=== PATIENT | male | born 1985 | race Caucasian/White ===

== ENCOUNTER 2016-12-03 20:11 | Inpatient (IN) | payer BC, OTHER ==
[~2016-12-03] VITALS: Ht 182.9 cm; Wt 95.3 kg
[2016-12-03 21:45] VITALS: BP 150/91
--- NOTE | 2016-12-03 21:45 | NUR ---
Admission Note: New admission is a 31yo male on the [facility] floor at 21:30 on 12/03/16 accompanied by male SOFTWARE TESTER. Skin check completed by staff nurse midwife in presence of SOFTWARE TESTER reveals skin to be clean, dry, intact, and WNL. VS upon admission: 150/91, 78, 98.7, 14, 93% Spo2 on RA. Heart rate irregular and pt reports significant cocaine use hx; will obtain order for EKG. Height is 6'0" and weight by standing scale is 210 lbs. Pt denies pain at this time. COWS=3, CIWA=4. Pt noted with 1mm pupils, delayed verbal responses, slurred speech. Pt reports taking 90mg Roxicodone immediately prior to admission and using 2gm cocaine on the day of admission. Pt reports NKDA/NKFA. Pt reports that he does have a PCP but is unable to recall the name or location of this MD. Pt reports the following substance use: Patient reports being sober for 3 years and then relapsing approximately 4 weeks ago. 1) Roxicodone: 450-600mg/day. Last use 90mg on 12/03/16 at 21:00. Using for 14 years total and 4 weeks at current rate. 2) Xanax: 2mg/day. Last use 2mg on 12/03/16 in AM. Using for 14 years total and 4 weeks at current rate. 3) ETOH: 4-8 drinks of beer of wine/day. Last use "a couple beers" on 12/03/16. Drinking for 17 years total and 2 weeks at current rate. 4) Cocaine: 2-3gm/day. Last use 2gm on 12/03/16. Using for 14 years total and 4 weeks at current rate. 5) GHB: occasional use of unknown amount. Treatment Hx: [facility] in [place], [place]: December 2012 - May 2013 [facility] in [place], [place]: May 2013 - December 2013 Pt reports medical hx of anxiety and multiple sports related injuries/fractures (right shoulder, left elbow, left wrist). Pt reports skin CA lesion removed from right knee at 24yo. Pt denies sz hx. Pt reports using needles for steroids but denies sharing needles.
[2016-12-03 21:53] LABS: *AMPHETAMINE, URINE NEGATIVE (NEGATIVE); *BARBITURATE, URINE NEGATIVE (NEGATIVE); *CANNABINOID, URINE NEGATIVE (NEGATIVE); *COCCAINE, URINE POSITIVE (NEGATIVE); *OPIATE, URINE NEGATIVE (NEGATIVE); *PHENCYCLIDINE SCREEN,URINE NEGATIVE (NEGATIVE)
[2016-12-03] MEDS ORDERED: ACETAMINOPHEN 325 MG TABLET PO PRN (23:00)
[2016-12-03] MEDS ORDERED: PROMETHAZINE HCL 25 MG/1 ML VIAL IM PRN (23:00)
[2016-12-03] MEDS ORDERED: LOPERAMIDE HCL 2 MG CAPSULE PO PRN ×2 (23:00)
[2016-12-03] MEDS ORDERED: DIAZEPAM 10 MG TABLET PO PRN ×2 (23:00)
[2016-12-03] MEDS ORDERED: MIRALAX 17 GM POWD.PACK PO PRN (23:00)
[2016-12-03] MEDS ORDERED: DIAZEPAM 5 MG TABLET PO PRN (23:00)
[2016-12-03] MEDS ORDERED: BUPRENORPHINE HCL 2 MG TAB.SUBL SL PRN (23:00)
[2016-12-03] MEDS ORDERED: DICYCLOMINE HCL 20 MG TABLET PO PRN (23:00)
[2016-12-03] MEDS ORDERED: IBUPROFEN 400 MG TABLET PO PRN (23:00)
[2016-12-03] MEDS ORDERED: MAGNESIUM HYDROXIDE 30 ML LIQUID UDC PO PRN (23:00)
[2016-12-03] MEDS ORDERED: diphenhydrAMINE 50 MG CAPSULE PO PRN (23:00)
[2016-12-03] MEDS ORDERED: LORAZEPAM 2 MG/1 ML VIAL IM PRN (23:00)
[2016-12-03 23:59] LABS: BASOPHILS # (AUTO) 0.1 K/uL (0.0-0.2); BASOPHILS % (AUTO) 0.7 % (0.0-2.0); EOSINOPHILS # (AUTO) 0.3 K/uL (0.0-0.7); HEMATOCRIT 49.9 % (40.0-50.0); HEMOGLOBIN 17.4 g/dL (14.0-18.0); LYMPHOCYTES # (AUTO) 1.8 K/uL (0.8-4.8); LYMPHOCYTES % (AUTO) 15.8 % (20.5-51.5); MEAN CORPUSCULAR HEMOGLOBIN 31.4 uug (27.0-31.0); MEAN CORPUSCULAR HGB CONC 35 g/dL (32.0-37.0); MONOCYTES # (AUTO) 0.9 K/uL (0.1-1.30); MONOCYTES % (AUTO) 8.5 % (0.0-11.0); PLATELET COUNT (AUTO) 197 K/uL (150-450); RED BLOOD CELL COUNT(AUTO) 5.54 MIL/uL (4.70-6.10); RED CELL DISTRIBUTION WIDTH 11.7 % (11.5-14.5); WHITE BLOOD COUNT (AUTO) 11.1 K/uL (4.0-11.2)
[2016-12-04] VITALS: BP 147/70
[2016-12-04 00:06] LABS: ALANINE AMINOTRANSFERASE 32 U/L (16-63); ALBUMIN 4.3 g/dL (3.4-5.0); ALKALINE PHOSPHATASE 83 U/L (50-136); AMYLASE 50 U/L (25-115); ASPARTATE AMINOTRANSFERASE 21 U/L (15-37); BILIRUBIN,TOTAL 0.7 mg/dL (0.2-1.0); CARBON DIOXIDE 29 mmol/L (21-32); CHLORIDE 101 mmol/L (98-107); GFR 59 mL/min (>60); GLUCOSE 102 mg/dL (74-106); LIPASE 96 U/L (73-393); MAGNESIUM 2.1 mg/dL (1.8-2.4); SODIUM SERUM 138 mmol/L (136-145); TOTAL PROTEIN, SERUM 7.8 g/dL (6.4-8.2); UREA NITROGEN, BLOOD 19 mg/dL (7-18)
[2016-12-04 00:07] LABS: CREATININE 1.4 mg/dL (0.6-1.3)
[2016-12-04 00:08] LABS: ETHANOL < 3 MG/DL (0-0)
[2016-12-04 00:18] LABS: THYROID STIMULATING HORMONE 4.714 mIU/mL (0.358-3.740)
[2016-12-04 00:26] LABS: HIV-1 p24 ANTIGEN NON REACTIVE (NONREACTIVE); HIV-1/2 ANTIBODY NON REACTIVE (NONREACTIVE)
[2016-12-04] MEDS ORDERED: TADA5TAB2 PO (03:07)
[2016-12-04 04:00] VITALS: BP 148/88
[2016-12-04] MEDS ORDERED: ONDANSETRON 4 MG/2 ML VIAL IV PRN (07:15)
--- NOTE | 2016-12-04 07:15 | NUR ---
End of Shift Note: Pt is a a 31yo male admitted to [facility] last night for medically-supervised withdrawal from opiates, benzodiazepines, and ETOH. Pt reports using Roxicodone 450-600mg/day and Xanax 2mg/day for 4 weeks, and drinking 4-8 beers/wine daily for 2 weeks. Pt also reports daily use of 2-3gm cocaine and intermittent use of GHB. Admission UDS resulted negative for opiates. Pt denies seizure hx. 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 Pt is a full code, on a regular diet, and reports NKDA/NKFA. No PRN medications were given this shift, as pt was intoxicated on admission. Pt reported significant cocaine use hx and noted upon assessment to have irregular HR, EKG ordered and resulted WNL. Last COWS=6, CIWA=7 at 04:00. Endorsed irregular HR, confirmation of PCP, use hx, and negative UDS for opiates to day shift nurse. Pt is currently in bed and slept 5 hours this shift. Bed is in low position and locked, side rails up x2, call light within reach. All needs attended and met. Will continue to monitor.
--- NOTE | 2016-12-04 07:35 | NUR ---
START OF SHIFT NOTE: Received report from night time nanny nurse. Pt is a 31 year old male admitted 12-03-16 for Roxicodone, Xanax and Cocaine dependence. Pt is not on a taper at this time. Pt is alert and oriented X4. Color good, skin warm and dry. Respirations even and unlabored. Pt resting in bed at this time. Safety precautions observed. Call light within reach. Will continue to monitor.
[2016-12-04 08:00] VITALS: BP 120/86
[2016-12-04] MEDS: MULTIVITAMINS,THERAPEUTIC TABLET PO SCH (08:50)
[2016-12-04] MEDS ORDERED: TUBERCULIN,PURIF.PROT.DERIV. 5 TU/0.1 ML TEST ID ONE (09:00)
--- NOTE | 2016-12-04 09:00 | NUR ---
VSS CIWA 11 C/O headache, anxiety and tremors. Valium 10mg po prn and Motrin 400mg po prn given.
--- NOTE | 2016-12-04 09:10 | NUR ---
TB test administered LFA
--- NOTE | 2016-12-04 10:00 | NUR ---
Pt states still with anxiety and sweating after Valium 10mg po prn. CIWA 8
--- NOTE | 2016-12-04 10:15 | NUR ---
COWS 12 Pt started on 5 day Subutex taper
[2016-12-04] MEDS: BUPRENORPHINE HCL 2 MG TAB.SUBL SL SCH ×4 (10:20→21:09)
[2016-12-04] MEDS ORDERED: ONDANSETRON 4 MG/2 ML VIAL IM PRN (11:15)
[2016-12-04] MEDS: LORAZEPAM 1 MG TABLET PO SCH ×3 (12:23→21:09)
--- NOTE | 2016-12-04 12:32 | NUR ---
VSS COWS 10 CIWA 8 Pt resting in bed. Still with tremors, sweating, body aches and anxiety.
[2016-12-04 12:56] VITALS: BP 116/70
[2016-12-04] MEDS: GABAPENTIN 300 MG CAPSULE PO SCH ×2 (16:25→21:09)
[2016-12-04] MEDS: METHOCARBAMOL 750 MG TABLET PO PRN (16:34)
[2016-12-04] MEDS: CLONIDINE HCL 0.1 MG TABLET PO PRN (16:34)
--- NOTE | 2016-12-04 16:36 | NUR ---
VSS COWS 10 CIWA 8. C/O body aches, sweating , tremors and anxiety. Clonidine 0.1mg po prn and Robaxin 750mg po prn given.
[2016-12-04] MEDS: ONDANSETRON ODT 4 MG TAB.RAPDIS SL PRN (17:32)
--- NOTE | 2016-12-04 17:37 | NUR ---
Pt states body aches improved after Clonidine and Robaxin prn. C/O nausea. Zofran 4mg sl given
[2016-12-04 17:40] VITALS: BP 120/80
--- NOTE | 2016-12-04 18:54 | NUR ---
END OF SHIFT NOTE: Report given to night time babysitter nurse. Pt is a 31 year old male admitted 12-03-16 for Roxicodone, Xanax and Cocaine dependence. Pt placed on a 5 day Ativan and 5 day Subutex tapers @ 1015. Tolerating well. Pt is alert and oriented X4. Color good, skin warm and dry. Respirations even and unlabored. Valium 10mg po prn and Motrin 400mg po prn given @ 0900. Also received Clonidine 0.1mg po prn and Robaxin 750mg po prn given @ 1640. Also received Zofran 4mg sl prn @ 1740. Pt resting in bed at this time. Safety precautions observed. Call light within reach.
--- NOTE | 2016-12-04 18:54 | NUR ---
Pt feels improved after Zofran prn.
--- NOTE | 2016-12-04 19:50 | NUR ---
Start of Shift Note: Report received from day shift nurse. Pt is a 31yo male admitted on 12/03/16 for medically-supervised withdrawal from opiates, benzos, ETOH, and cocaine. Pt reports using 450-600mg Roxicodone and 2mg Xanax daily for 4 weeks and drinking 4-8 beers/wine daily for 2 weeks. Pt also reports daily use of 2-3gm cocaine. Pt is on day 1 of a 5-day Ativan and Subutex tapers. Pt received with last day shift COWS=10, CIWA=9. Pt reports PMHx of anxiety, HSV-2, skin CA, and multiple sports-related injuries. Full code, regular diet, NKDA/NKFA. Pt is currently in room resting, and did not attend group sessions today. Will reinforce education on importance of attending group. All needs attended and met at this time. All safety precautions are in place. Will continue to monitor.
[2016-12-04 20:00] VITALS: BP 119/65
--- NOTE | 2016-12-04 21:40 | NUR ---
MD Communication: Pt requests Trazodone for sleep, states that it has been more effective for him in the past than Benadryl. Dr Simpson contacted and new order received for Trazodone 50mg PO HSPRN Sleep. Order noted and carried out.
--- NOTE | 2016-12-04 21:41 | NUR ---
PRN Trazodone: Pt complains of inability to sleep. Administered PRN Trazodone as ordered. Will continue to monitor.
[2016-12-04] MEDS ORDERED: TRAZODONE 50 MG TABLET PO ONE (21:45)
[2016-12-04] MEDS ORDERED: TRAZODONE 50 MG TABLET ONE (21:46)
--- NOTE | 2016-12-04 22:45 | NUR ---
Reassessment: Pt is in bed with eyes closed. Respirations are even and unlabored. No s/s of acute distress noted. PRN Trazodone effective. Will continue to monitor.
[2016-12-05] VITALS: BP 133/86
[2016-12-05] MEDS: ONDANSETRON ODT 4 MG TAB.RAPDIS SL PRN (00:22)
--- NOTE | 2016-12-05 00:22 | NUR ---
Zofran PRN: Pt noted with nausea and vomiting. Emesis episode x1. Pt stated he's feeling nauseated. Zofran ODT PRN given as ordered. Will continue to monitor.
--- NOTE | 2016-12-05 01:25 | NUR ---
Reassessment: Pt denies nausea at this time. PRN Zofran effective. Will continue to monitor.
[2016-12-05 04:00] VITALS: BP 106/74
[2016-12-05] MEDS: HYDROXYZINE PAMOATE 25 MG CAPSULE PO PRN (04:19)
[2016-12-05] MEDS: CLONIDINE HCL 0.1 MG TABLET PO PRN (04:24)
--- NOTE | 2016-12-05 04:25 | NUR ---
PRN Clonidine and PRN Vistaril: Pt reports waking up with severe anxiety and sweating. Administered PRN Clonidine for diaphoresis/anxiety and PRN Vistaril for anxiety as ordered. Will continue to monitor.
--- NOTE | 2016-12-05 04:33 | NUR ---
Hallucinations: Pt reports seeing shadows move. Pt states, "I saw my dog in my room and thought I was using my phone." Will continue to monitor for safety.
--- NOTE | 2016-12-05 05:25 | NUR ---
Reassessment: Pt is in bed with eyes closed. Respirations are even and unlabored. No s/s of acute distress noted. PRN Vistaril and PRN Clonidine effective AEB pt's ability to rest. Will continue to monitor.
[2016-12-05 06:06] LABS: HCV AB <0.1 s/co ratio (0.0-0.9); HEPATITIS B CORE AB, IgM Negative (Negative); HEPATITIS B SURFACE AG Negative (Negative)
--- NOTE | 2016-12-05 06:59 | NUR ---
End of Shift Note: Pt is a a 31yo male admitted to [facility] on 12/03/16 for medically-supervised withdrawal from opiates, benzodiazepines, and ETOH. Pt reports using 450-600mg Roxicodone and 2mg Xanax daily for 4 weeks, and drinking 4-8 beers/wine daily for 2 weeks. Pt also reports daily use of 2-3gm cocaine and intermittent use of GHB. Pt is to start the second day of 5-day Ativan and Subutex tapers. Scheduled medication taper effectively managed s/s of withdrawal, and COWS/CIWA decreased from 06/04 at 20:00 to 9 at 00:00. PRN medications were then necessary to manage anxiety (PRN Vistaril), diaphoresis (PRN Clonidine), and nausea (PRN Zofran). Last COWS/CIWA was 6 at 04:00. Pt reports PMHx of anxiety, HSV-2, skin CA, and multiple sports injuries. Pt is a full code, on a regular diet, and reports NKDA/NKFA. V/S stable throughout shift. Total fluid intake this shift: 1355 ml; output: urine x 4 and BM x 0. Pt currently in bed and slept 11 hours this shift. Pt endorsed to day shift nurse.
--- NOTE | 2016-12-05 07:54 | NUR ---
BEGINNING OF SHIFT Patient endorsement report received from caustic cresylate shift superintendent nurse, all pertinent information discussed. Patient is a 31 year old male, full code, with no known allergies, regular diet. Patient with admitting Dx: opiate/bzo/etoh dependence. Patient with past medical history of: anxiety, HSV-2, skin CA: right knee, sports injury: right shoulder, left elbow, left wrist. Patient with substance use of: Roxicodone 450-600mg daily for 4 weeks, Xanax 2mg daily for 4 weeks, etoh (beer or wine) 4-8 glasses a day for 2 weeks,cocaine 2-3 gram daily for 4 weeks and GHB: occasional use, unknown amount. Patient was place don a 5 day Subutex and 5 day Ativan taper as ordered, and is scheduled to begin day 2 of taper. As per caustic cresylate shift superintendent patient received PRN: Vistaril, clonidine, and trazodone, effective as per caustic cresylate shift superintendent. Patient with last cow score of: 6 and ciwa score of: 9. Patient received awake, alert and oriented x4, educated patient regarding plan of care for the day and medication regimen with good verbal understanding. safety measures in place, call light kept with in reach, will continue to monitor.
[2016-12-05 09:05] VITALS: BP 114/69
[2016-12-05] MEDS: THIAMINE HCL 100 MG TABLET PO SCH (09:10)
[2016-12-05] MEDS: MULTIVITAMINS,THERAPEUTIC TABLET PO SCH (09:10)
[2016-12-05] MEDS: GABAPENTIN 300 MG CAPSULE PO SCH ×3 (09:10→20:38)
[2016-12-05] MEDS: LORAZEPAM 1 MG TABLET PO SCH ×3 (09:10→20:38)
[2016-12-05] MEDS: FOLIC ACID 1 MG TABLET PO SCH (09:10)
[2016-12-05] MEDS: BUPRENORPHINE HCL 2 MG TAB.SUBL SL SCH ×3 (09:11→20:39)
[2016-12-05 09:37] LABS: CALCIUM 8.6 mg/dL (8.5-10.1); PHOSPHOROUS 3.5 mg/dL (2.5-4.9); POTASSIUM 4.2 mmol/L (3.5-5.1)
[2016-12-05 09:43] LABS: CREATININE 1.5 mg/dL (0.6-1.3)
[2016-12-05 10:01] LABS: BASOPHILS % (AUTO) 0.6 % (0.0-2.0); EOSINOPHILS # (AUTO) 0.4 K/uL (0.0-0.7); EOSINOPHILS % (AUTO) 5.2 % (0.0-7.0); HEMATOCRIT 46.1 % (40.0-50.0); MEAN CORPUSCULAR HGB CONC 35 g/dL (32.0-37.0); MEAN CORPUSCULAR VOLUME 92.3 fL (82.0-92.0); MONOCYTES # (AUTO) 0.6 K/uL (0.1-1.30); MONOCYTES % (AUTO) 9.4 % (0.0-11.0); NEUTROPHILS # (AUTO) 3.9 K/uL (1.8-8.9); NEUTROPHILS % (AUTO) 55.8 % (38.5-71.5); PLATELET COUNT (AUTO) 171 K/uL (150-450); RED BLOOD CELL COUNT(AUTO) 4.99 MIL/uL (4.70-6.10)
[2016-12-05 10:10] LABS: WHITE BLOOD COUNT (AUTO) 6.9 K/uL (4.0-11.2)
--- NOTE | 2016-12-05 10:15 | NUR ---
MD COMMUNICATION Per MD with new orders for IVF NS 125ml/hr for hydration.
--- NOTE | 2016-12-05 10:37 | NUR ---
IV INSERTION Saline lock inserted to right hand, procedure explained prior to insertions with good verbal understanding, aseptic technique observed at all tiems, Procedure well tolerated. Inserted a 22 gauge, Site patent, and intact, flushed with normal saline no s/sx of infiltration noted, patient to begin infusion as ordered. will continue to monitor closely.
[2016-12-05] MEDS: IV NS 1000 ML 1,000 ML IV SCH ×2 (11:59→20:37)
[2016-12-05 14:55] VITALS: BP 114/69
[2016-12-05 17:20] VITALS: BP 106/63
--- NOTE | 2016-12-05 19:20 | NUR ---
END OF SHIFT Patient alert and oriented x4, vital signs were stable during shift, patient compliant with therapeutic plan of care. Patient with admitting Dx: opiate/bzo/etoh dependence. Continues on 5 day Subutex and 5 day Ativan taper as ordered and is currently on day 2 of taper, well tolerated, no ASE noted. 0900 assessment patient presented with: observable moist, mild bone and joint aches, stuffy nose, irritable, anxiety, mild agitation, and very mild numbness to arms with cow score of: 6 and ciwa score of: 9; 1300 assessment patient presented with: observable moist, mild bone and joint aches, stuffy nose, irritable, anxiety, mild agitation, and very mild numbness to arms with cow score of: 6 and ciwa score of: 9. 1700 assessment patient presented with: observable moist, mild bone and joint aches, stuffy nose, irritable, anxiety, mild agitation, and very mild numbness to arms with cow score of: 6 and ciwa score of: 9. During shift patient was started on IVF for hydration of saline 125ml/hr IVF infusing well, IV site intact and patent with no s/sx of infiltration. Patient encouraged to attend group therapies/sessions to learn new coping skills to prevent relapse, noted attending and participating, denies SI/HI. Patient encouraged adequate PO fluid intake as tolerated. Safety measures in place. will continue to monitor. safety measures in place.
--- NOTE | 2016-12-05 19:50 | NUR ---
Start of Shift Note: Report received from day shift nurse. Pt is a 31yo male admitted on 12/03/16 for medically-supervised withdrawal from opiates, benzos, ETOH, and cocaine. Pt reports using 450-600mg Roxicodone and 2mg Xanax daily for 4 weeks and having 4-8 servings of beer or wine daily for 2 weeks. Pt also reports daily use of 2-3gm cocaine. Pt is on day 2 of 5-day Ativan and Subutex tapers. Pt received with last day shift COWS=6, CIWA=9. Pt has new 22G in right hand running NS at 125mL/hr. Pt reports PMHx of anxiety, HSV-2, skin CA, and multiple sports-related injuries. Full code, regular diet, NKDA/NKFA. Pt is currently in room resting, reports nausea, anxiety, and body aches. All needs attended and met at this time. All safety precautions are in place. Will continue to monitor.
[2016-12-05 20:00] VITALS: BP 133/65
[2016-12-05] MEDS: TRAZODONE 50 MG TABLET PO PRN (20:38)
--- NOTE | 2016-12-05 20:39 | NUR ---
PRN Trazodone: Pt complains of inability to sleep. Non-pharmacological measures not effective. Administered PRN Trazodone as ordered. Pt educated on risks and benefits. Will continue to monitor.
--- NOTE | 2016-12-05 21:40 | NUR ---
Reassessment: Pt is in bed with eyes closed. Respirations are even and unlabored. No s/s of acute distress noted. PRN Trazodone effective. Will continue to monitor.
[2016-12-06] VITALS: BP 132/63
--- NOTE | 2016-12-06 | NUR ---
COWS and CIWA Deferred: COWS and CIWA assessments deferred for sleep. V/S: 98.1, 68, 16, 98%, 132/63 Addendum: 12/06/16 at 0300 by JOVANNA CROWELL RN Amended: Links added.
[2016-12-06 04:00] VITALS: BP 143/99
--- NOTE | 2016-12-06 04:00 | NUR ---
COWS/CIWA Deferred: COWS and CIWA deferred for sleep. V/S: 97.6, 83, 16, 100%, 143/99. Addendum: 12/06/16 at 0553 by JOVANNA CROWELL RN Amended: Links added.
[2016-12-06] MEDS: IV NS 1000 ML 1,000 ML IV SCH (04:15)
--- NOTE | 2016-12-06 04:15 | NUR ---
IV Removed: Pt observed leaving room without IV pump to go downstairs to smoke. IV pump in room, with IV catheter hanging from pole, dripping NS on to floor. Pt states, "Oh, yeah. I took that out. I don't really want it." Pt educated on risks and benefits but continued to refuse re-insertion of IV for fluid administration. Adequate PO fluids and caloric intake education provided to pt with verbal understanding.
--- NOTE | 2016-12-06 07:19 | NUR ---
End of Shift Note: Pt is a 31 y/o male admitted to [facility] on 12/03/16 for medically-supervised withdrawal from opiates, benzodiazepines, and ETOH. Pt reports PMHx of anxiety, HSV-2, skin CA, and multiple sports injuries. Pt is a full code, on a regular diet, and reports NKDA/NKFA. Pt reports using 450-600mg roxicodone and 2mg Xanax QD for 4 weeks, and drinking 4-8 beers/wine QD for 2 weeks. Pt also reports daily use of 2-3gm cocaine and intermittent use of GHB. Pt is to start day 3 of 5-day Ativan and Subutex tapers. Scheduled medication taper effectively managed s/s of withdrawal; last COWS=8, CIWA=8. PRN Trazodone was given for inability to sleep. Pt was on IV fluids at start of shift, and received 1000mL of NS at 125mL/hr, but pt removed IV catheter at 04:15 and then refused reinsertion. V/S stable throughout shift. Total fluid intake this shift: 1200 ml oral, 1000ml IV; output: urine x 2 and BM x 0. Pt currently in bed and slept 7 hours this shift. Pt endorsed to day shift nurse.
--- NOTE | 2016-12-06 07:58 | NUR ---
BEGINNING OF SHIFT Patient endorsement report received from warehouse worker 2nd shift nurse, all pertinent information discussed. Patient is a 31 year old male, full code, with no known allergies, regular diet. Patient with admitting Dx: opiate/bzo/etoh dependence. Patient with past medical history of: anxiety, HSV-2, skin CA: right knee, sports injury: right shoulder, left elbow, left wrist. Patient with substance use of: Roxicodone 450-600mg daily for 4 weeks, Xanax 2mg daily for 4 weeks, etoh (beer or wine) 4-8 glasses a day for 2 weeks,cocaine 2-3 gram daily for 4 weeks and GHB: occasional use, unknown amount. Patient was place don a 5 day Subutex and 5 day Ativan taper as ordered, and is scheduled to begin day 3 of taper. As per warehouse worker 2nd shift patient received PRN: trazadone as ordered, effective as per warehouse worker 2nd shift. Patient slept for 7 hours. IV discontinued on 12/09/16. Patient with last cow score of: 8 and ciwa score of: 8. Patient received awake, alert and oriented x4, educated patient regarding plan of care for the day and medication regimen with good verbal understanding. safety measures in place, call light kept with in reach, will continue to monitor.
[2016-12-06 08:21] VITALS: BP 101/60
[2016-12-06 08:47] LABS: BASOPHILS # (AUTO) 0.1 K/uL (0.0-0.2); BASOPHILS % (AUTO) 0.8 % (0.0-2.0); EOSINOPHILS # (AUTO) 0.3 K/uL (0.0-0.7); EOSINOPHILS % (AUTO) 3.8 % (0.0-7.0); HEMATOCRIT 50.1 % (40.0-50.0); HEMOGLOBIN 17.3 g/dL (14.0-18.0); LYMPHOCYTES # (AUTO) 1.9 K/uL (0.8-4.8); LYMPHOCYTES % (AUTO) 28.4 % (20.5-51.5); MEAN CORPUSCULAR HEMOGLOBIN 31.8 uug (27.0-31.0); MEAN CORPUSCULAR HGB CONC 35 g/dL (32.0-37.0); MONOCYTES # (AUTO) 0.7 K/uL (0.1-1.30); MONOCYTES % (AUTO) 10.3 % (0.0-11.0); NEUTROPHILS # (AUTO) 3.7 K/uL (1.8-8.9); NEUTROPHILS % (AUTO) 56.7 % (38.5-71.5); PLATELET COUNT (AUTO) 170 K/uL (150-450); RED BLOOD CELL COUNT(AUTO) 5.45 MIL/uL (4.70-6.10); RED CELL DISTRIBUTION WIDTH 11.9 % (11.5-14.5); WHITE BLOOD COUNT (AUTO) 6.7 K/uL (4.0-11.2)
[2016-12-06] MEDS ORDERED: BUPRENORPHINE HCL 2 MG TAB.SUBL SL SCH (09:00)
[2016-12-06 09:09] LABS: CALCIUM 8.7 mg/dL (8.5-10.1); CREATININE 1.3 mg/dL (0.6-1.3); PHOSPHOROUS 3.5 mg/dL (2.5-4.9); POTASSIUM 4.7 mmol/L (3.5-5.1)
[2016-12-06] MEDS: GABAPENTIN 300 MG CAPSULE PO SCH ×3 (09:11→20:30)
[2016-12-06] MEDS: LORAZEPAM 1 MG TABLET PO SCH ×4 (09:12→20:29)
[2016-12-06] MEDS: MULTIVITAMINS,THERAPEUTIC TABLET PO SCH (09:13)
[2016-12-06] MEDS: FOLIC ACID 1 MG TABLET PO SCH (09:13)
[2016-12-06] MEDS: THIAMINE HCL 100 MG TABLET PO SCH (09:14)
[2016-12-06 09:16] LABS: THYROID STIMULATING HORMONE 1.861 mIU/mL (0.358-3.740)
[2016-12-06] MEDS ORDERED: BACLOFEN 20 MG TABLET PO ONE (11:00)
[2016-12-06] MEDS ORDERED: GABAPENTIN 300 MG CAPSULE PO ONE (11:00)
[2016-12-06] MEDS ORDERED: CLONIDINE HCL 0.1 MG TABLET PO ONE (11:00)
[2016-12-06] MEDS: QUETIAPINE FUMARATE 25 MG TABLET PO PRN (11:41)
--- NOTE | 2016-12-06 11:41 | NUR ---
ZAHRAA PANDEY Notified Dr. keene and Dr. Camp, patient reports increase in agitation, patient also reported that at times he sees shadows from the corner of his eye and also experiences the room spinning at times. new orders from Dr. Camp, administered Seroquel 25mg Po, medication administered as ordered, will monitor effectiveness.
--- NOTE | 2016-12-06 12:41 | NUR ---
SEROQUEL REASSESSMENT Patient reports feels less agitated, medication with relief, will continue to monitor.
[2016-12-06 13:53] VITALS: BP 113/60
[2016-12-06] MEDS: BACLOFEN 20 MG TABLET PO SCH ×2 (14:07→20:30)
[2016-12-06] MEDS: BUPRENORPHINE HCL 2 MG TAB.SUBL SL SCH ×2 (14:08→20:33)
[2016-12-06] MEDS: CLONIDINE HCL 0.1 MG TABLET PO SCH ×2 (14:08→20:30)
[2016-12-06 17:02] VITALS: BP 158/89
--- NOTE | 2016-12-06 19:15 | NUR ---
START OF SHIFT Received 31 year old male patient admitted on 12/03/16 for Xanax, ETOH, Roxicodone, Cocaine and GHB dependency. Pt is full code with MORENO. He reports a PMHx of anxiety, HSV 2, skin cancer of the right knee, and sports related injuries to the right shoulder, left elbox and left wrist. He reports using Xanax 2 mg daily for 4 weeks, last dose 2 mg on 12/03/16. ETOH (beer or wine) 4-8 glasses daily for 2 weeks. Last dose 2 drinks on 12/03/16, Roxicodone 450 mg-600 mg daily for 4 weeks. Last dose 90 mg on 12/03/16. Cocaine 2-3 gram daily for 4 weeks. Last dose 2 grams and GHB occasionally of unknown amount. Pt placed on 5 day Ativan and 5 day Subutex taper and tolerating well. Pt is alert and oriented x4, breathing is even and unlabored, safety measures in place. Will continue to monitor.
--- NOTE | 2016-12-06 19:22 | NUR ---
END OF SHIFT Patient alert and oriented x4, vital signs were stable during shift, patient compliant with therapeutic plan of care. Patient with admitting Dx: opiate/bzo/etoh dependence. Continues on 5 day Subutex and 5 day Ativan taper as ordered and is currently on day 3 of taper, well tolerated, no ASE noted. 0900 mild bone and joint aches, flushed, yawning, mild anxiety, mild agitation, barely sweating with cow score of: 5 and ciwa score of: 10; 1300 assessment patient presented with: mild bone and joint aches, flushed, agitated, irritable, and mild visual hallucinations. 1700 assessment patient presented with: c/o chills, mild bone and joint aches, heart rate of 89, mild anxiety and mild agitation with cow score of: 4 and ciwa score of: 4. Was administered PRN: Seroquel for agitation as ordered during shift, medication with help, patient reported feeling less anxious during shift.Patient was also started on routine clonidine as ordered by Dr. keene. Patient encouraged to attend group therapies/sessions to learn new coping skills to prevent relapse, noted attending and participating, denies SI/HI. Patient encouraged adequate PO fluid intake as tolerated. Safety measures in place. will continue to monitor. safety measures in place.
[2016-12-06 20:00] VITALS: BP 147/88
[2016-12-06] MEDS: TRAZODONE 50 MG TABLET PO PRN (20:29)
--- NOTE | 2016-12-06 20:29 | NUR ---
PRN TRAZODONE Pt complains of inability to sleep. PRN Trazodone administered as ordered. Breathing is even and unlabored, safety measures in place. Will continue to monitor effectiveness of medication.
--- NOTE | 2016-12-06 21:29 | NUR ---
PRN TRAZODONE REASSESSMENT PRN medication effective. Pt noted to be lying comfortably in bed with eyes closed and is asleep. Respirations 16, breathing is even and unlabored, safety measures in place. Will continue to monitor.
[2016-12-07] VITALS: BP 129/82
[2016-12-07 04:00] VITALS: BP 130/74
--- NOTE | 2016-12-07 07:22 | NUR ---
END OF SHIFT Pt remained stable and had uneventful night. He received PRN medication of Trazodone d/t inability to sleep. PRN medication was effective. He slept a total of 5hrs, Intake:2200mL Void:x5 BM:0 COWS:3, CIWA:2 at 0400. Pt remains alert and oriented x4, breathing is even and unlabored, safety measures in place . Endorsed to oncoming nurse.
--- NOTE | 2016-12-07 07:49 | NUR ---
BEGINNING OF SHIFT Patient endorsement report received from mini shifter nurse, all pertinent information discussed. Patient is a 31 year old male, full code, with no known allergies, regular diet. Patient with admitting Dx: opiate/bzo/etoh dependence. Patient with past medical history of: anxiety, HSV-2, skin CA: right knee, sports injury: right shoulder, left elbow, left wrist. Patient with substance use of: Roxicodone 450-600mg daily for 4 weeks, Xanax 2mg daily for 4 weeks, etoh (beer or wine) 4-8 glasses a day for 2 weeks,cocaine 2-3 gram daily for 4 weeks and GHB: occasional use, unknown amount. Patient was place don a 5 day Subutex and 5 day Ativan taper as ordered, and is scheduled to begin day 4 of taper. As per mini shifter patient received PRN: trazadone as ordered, effective as per mini shifter. Patient slept for 5 hours. Patient with last cow score of: 3 and ciwa score of: 2. Patient received awake, alert and oriented x4, educated patient regarding plan of care for the day and medication regimen with good verbal understanding. safety measures in place, call light kept with in reach, will continue to monitor.
[2016-12-07 09:09] VITALS: BP 101/61
[2016-12-07] MEDS: THIAMINE HCL 100 MG TABLET PO SCH (09:11)
[2016-12-07] MEDS: GABAPENTIN 300 MG CAPSULE PO SCH ×2 (09:11→14:16)
[2016-12-07] MEDS: MULTIVITAMINS,THERAPEUTIC TABLET PO SCH (09:11)
[2016-12-07] MEDS: BUPRENORPHINE HCL 2 MG TAB.SUBL SL SCH ×3 (09:11→21:28)
[2016-12-07] MEDS: LORAZEPAM 1 MG TABLET PO SCH ×3 (09:12→21:26)
[2016-12-07] MEDS: CLONIDINE HCL 0.1 MG TABLET PO SCH ×3 (09:12→21:27)
[2016-12-07] MEDS: FOLIC ACID 1 MG TABLET PO SCH (09:12)
[2016-12-07] MEDS: BACLOFEN 20 MG TABLET PO SCH ×3 (09:12→21:27)
[2016-12-07 14:10] VITALS: BP 140/86
[2016-12-07] MEDS: MAG HYDROX/AL HYDROX/SIMETH 30 ML LIQUID UDC PO PRN (14:17)
--- NOTE | 2016-12-07 14:17 | NUR ---
PRN MYLANTA Patient c/o heartburn, administered Mylanta as ordered, will monitor effectiveness. patient denies N/V
--- NOTE | 2016-12-07 15:17 | NUR ---
MOTRIN REASSESSMENT Patient reports medication with relief, no c/o heart burn, will continue to monitor closely.
[2016-12-07 15:38] LABS: CORTISOL AM 6.3 ug/dL (6.2-19.4)
[2016-12-07] MEDS: HYDROXYZINE PAMOATE 25 MG CAPSULE PO PRN (17:31)
[2016-12-07 17:55] VITALS: BP 103/60
--- NOTE | 2016-12-07 18:31 | NUR ---
VISTARIL REASSESSMENT Patient reports medication effective at reducing anxiety, and reports feels less anxious. safety measures in place. will conitnue to monitor.
--- NOTE | 2016-12-07 18:49 | NUR ---
PRN MIRALAX Patient reports has not had a bowel movement and feels "bloated and constipated" patient was administered miralax as ordered, will endorse to shift supervisor melting nurse to monitor effectiveness.
--- NOTE | 2016-12-07 19:07 | NUR ---
END OF SHIFT Patient alert and oriented x4, vital signs were stable during shift, patient compliant with therapeutic plan of care. Patient with admitting Dx: opiate/bzo/etoh dependence. Continues on 5 day Subutex and 5 day Ativan taper as ordered and is currently on day 4 of taper, well tolerated, no ASE noted. 0900 presented with: c/o chills, mild bone and joint aches, irritable, anxiety, barely sweating, and anxiety with cow score of: 6 and ciwa score of: 6. 1300 assessment patient presented with: moist eyes, mild anxiety, mild agitation, and mild bone and joint aches with cow score of: 3 and ciwa score of: 2; 1700 assessment patient presented with heart rate of 82, anxiety, irritable, and mild agitation with cow score of: 3, and ciwa score of: 4. Was administered PRN: Mylanta as ordered at 1417 as ordered and Vistaril at 1731 as ordered, medications with help. Administered miralax at 1849 endorsed to shift supervisor melting nurse, to monitor effectiveness of medication. Patient encouraged to attend group therapies/sessions to learn new coping skills to prevent relapse, noted attending and participating, denies SI/HI. Patient encouraged adequate PO fluid intake as tolerated. Safety measures in place. will continue to monitor. safety measures in place.
--- NOTE | 2016-12-07 19:15 | NUR ---
START OF SHIFT Received 31 year old male patient admitted on 12/03/16 for Xanax, ETOH, Roxicodone, Cocaine and GHB dependency. Pt is full code with MORENO. He reports a PMHx of anxiety, HSV 2, skin cancer of the right knee, and sports related injuries to the right shoulder, left elbox and left wrist. Pt continues on 5 day Ativan and 5 day Subutex taper and tolerating well. Pt is alert and oriented x4, breathing is even and unlabored, safety measures in place. Will continue to monitor.
[2016-12-07 20:00] VITALS: BP 127/76
[2016-12-07] MEDS ORDERED: GABAPENTIN 300 MG CAPSULE PO SCH (21:00)
[2016-12-07] MEDS: TRAZODONE 50 MG TABLET PO PRN (21:28)
--- NOTE | 2016-12-07 21:28 | NUR ---
PRN TRAZODONE Pt complains of inability to fall asleep. PRN Trazodone administered as ordered. Breathing is even and unlabored safety measures in place. Will continue to monitor effectiveness of medication.
--- NOTE | 2016-12-07 22:28 | NUR ---
PRN TRAZODONE REASSESSMENT PRN medication somewhat effective. Pt lying comfortably in bed, appears to be drowsy and ready to sleep. Breathing is even and unlabored, safety measures in place. Will continue to monitor.
[2016-12-08] VITALS: BP 125/70
[2016-12-08 04:00] VITALS: BP 129/72
--- NOTE | 2016-12-08 07:08 | NUR ---
END OF SHIFT Pt is alert and oriented x4. At 1999 pt complained of w/d symptoms such as chills, body aches and anxiety. He reports taper medications are effective in relieving his symptoms of withdrawal. He received PRN Trazodone at 2127 d/t inability to sleep. PRN medication was effective. Pt reported that PRN Miralax was somewhat effective in relieving his abdominal pain related to indigestion. Pt stated " yeah, I feel a little better." Encouraged fluids, pt verbalized understanding. He slept a total of 8 hrs, Intake: 1350mL Void:x3 BM: 0, COWS: 2, CIWA:1 at 0400. Breathing is even and unlabored. Pt is safe with bed locked in lowest position, side rails up x2 and call light within reach. Endorsed to oncoming nurse.
[2016-12-08 08:00] VITALS: BP 115/74
--- NOTE | 2016-12-08 08:10 | NUR ---
START OF SHIFT: RECEIVED PT A/O X 4. HE PRESENTS WITH ANXIOUS MOOD AND CONGRUENT AFFECT. HE REPORTS HE IS HAVING DRUG DREAMS AND SLEPT RESTLESS. OFFERED SUPPORT. ATIVAN/SUBUTEX TAPER IN PROGRESS. CIWA 1 COWS 2. HE C/O MILD BODY ACHES,ANXIETY AND RESTLESSNESS. MEDICATED ORDERED. ENCOURAGED GROUP ATTENDANCE TO IMPROVE COPING SKILLS AND PREVENT RELAPSE. WILL CONTINUE TO MONITOR AND OFFER SUPPORT.
[2016-12-08] MEDS: BACLOFEN 20 MG TABLET PO SCH ×3 (09:07→20:42)
[2016-12-08] MEDS: THIAMINE HCL 100 MG TABLET PO SCH (09:07)
[2016-12-08] MEDS: CLONIDINE HCL 0.1 MG TABLET PO SCH ×3 (09:07→20:42)
[2016-12-08] MEDS: BUPRENORPHINE HCL 2 MG TAB.SUBL SL SCH ×2 (09:08→20:43)
[2016-12-08] MEDS: FOLIC ACID 1 MG TABLET PO SCH (09:09)
[2016-12-08] MEDS: LORAZEPAM 1 MG TABLET PO SCH ×2 (09:09→20:42)
[2016-12-08] MEDS: MULTIVITAMINS,THERAPEUTIC TABLET PO SCH (09:10)
[2016-12-08] MEDS: GABAPENTIN 300 MG CAPSULE PO SCH ×3 (09:10→20:42)
[2016-12-08 12:00] VITALS: BP 118/67
[2016-12-08] MEDS: QUETIAPINE FUMARATE 25 MG TABLET PO PRN (12:16)
[2016-12-08] MEDS: METHOCARBAMOL 750 MG TABLET PO PRN (12:23)
--- NOTE | 2016-12-08 12:25 | NUR ---
PRN SEROQUEL GIVEN FOR AGITATION AND REPORTED SEVERE ANXIETY. PRN ROBAXIN GIVEN FOR MUSCLE ACHES AND MUSCLE CRAMPS. WILL MONITOR EFFECTIVENESS.
--- NOTE | 2016-12-08 13:05 | NUR ---
PT STATES PRN SEROQUEL WAS MILDLY EFFECTIVE FOR AGITATION AND ANXIETY. HE STATES THE ROBAXIN WAS MILDLY EFFECTIVE IN REDUCING MUSCLE ACHES AND SPASMS.
[2016-12-08 16:00] VITALS: BP 125/78
--- NOTE | 2016-12-08 19:02 | NUR ---
END OF SHIFT: PT CONTINUES ON ATIVAN /SUBUTEX TAPER. HE C/O ANXIETY AND BODY ACHES ALSO RACING THOUGHTS AND DRUG DREAMS. DETOX MEDS WERE EFFECTIVE THIS AM. PT BECAME VERY ANXIOUS AND AGITATED AND C/O MUSCLE ACHES LATER. PRN SEROQUEL AND ROBAXIN GIVEN AND EFFECTIVE. LAST CIWA 3 COWS 3. GABAPENTIN INCREASED PER MD. ENCOURAGED GROUP ATTENDANCE TO IMPROVE COPING SKILLS AND PREVENT RELAPSE. HE STATES HE ATTENDED A COUPLE OF GROUPS. [facility]
--- NOTE | 2016-12-08 19:30 | NUR ---
Start of Shift Pt is a 31 year old male admitted on 12/03/2016 for Roxicodone, Xanax, ETOH, Cocaine and GHB dependence, placed on 5 day Ativan taper and 5 day Subutex taper. Roxicodone 450-600mg/daily, Xanax 2mg/daily, Beer or wine 4-8 servings daily for 2 weeks, Cocaine 2-3g/daily and GHB occasional use, unknown amount. NKA, regular diet and full code. PMH: Anxiety, HSV 2, skin cancer (right knee) and sports related injuries to the right shoulder, left elbow and left wrist. Upon assessment, pt presented with anxiety, muscle/joint aches, skin noted with sweat, face flushed, respirations unlabored, denies SOB/chest pain, denies n/v/d. Pt is currently in room, all needs met at this time. Safety measures in place, call light within reach, side rails up x2, bed locked and in low position. Will continue to monitor.
[2016-12-08] MEDS: MAG HYDROX/AL HYDROX/SIMETH 30 ML LIQUID UDC PO PRN (19:35)
--- NOTE | 2016-12-08 19:35 | NUR ---
PRN Administration Pt reported heartburn, requested relief. Maalox 30ml PRN administered. Safety measures in place, Will continue to monitor
[2016-12-08 20:00] VITALS: BP 139/92
--- NOTE | 2016-12-08 20:35 | NUR ---
PRN Reassessment Upon reassessment of heartburn, pt states, "It getting better, thanks". All needs met at this time. Safety measures in place, Will continue to monitor.
[2016-12-08] MEDS: TRAZODONE 50 MG TABLET PO PRN (23:05)
--- NOTE | 2016-12-08 23:05 | NUR ---
PRN Administration Pt requested aid to help him sleep d/t his inability to fall asleep. Trazodone 50mg PRN administered. Safety measures in place, Will continue to monitor.
[2016-12-09] VITALS: BP 121/68
--- NOTE | 2016-12-09 | NUR ---
PRN Reassessment - Vital Signs Upon reassessment pt is sleeping, no acute s/s of distress noted, respirations even and unlabored. BP 121/68, pulse 98, Spo2 99%, temp 98, respirations 17, no reports of pain. COWS/CIWA assessment deferred d/t pt sleeping, to asses while pt is awake as ordered. Safety measures in place, will continue to monitor.
[2016-12-09] MEDS: METHOCARBAMOL 750 MG TABLET PO PRN ×2 (00:51→08:24)
[2016-12-09] MEDS: QUETIAPINE FUMARATE 25 MG TABLET PO PRN ×3 (00:51→23:18)
--- NOTE | 2016-12-09 00:51 | NUR ---
PRN Administration Upon awakening, pt reports increased anxiety d/t "worrying about everything that's on my mind". Pt requested if he can make a phone call at this hour to his friend. Pt was educated on phone call policy on the unit. Pt is pacing in room and noted with increased agitation. Seroquel 25mg PRN and Robaxin 750mg for reports of muscle aches administered. Safety measures in place, Will continue to monitor.
--- NOTE | 2016-12-09 01:51 | NUR ---
PRN Reassessment Upon reassessment, pt is in bed, eyes closed, respirations unlabored, no acute s/s of distress noted. Safety measures in place, Will continue to monitor.
[2016-12-09 04:00] VITALS: BP 131/86
--- NOTE | 2016-12-09 04:00 | NUR ---
Vital Signs BP 131/86, pulse 85, respirations 16, SpO2 97%, temp 97.9, no reports of pain 0/10. COWS/CIWA assessment deferred d/t pt sleeping, to assess while pt is awake as ordered. Safety measures in place, Will continue to monitor.
--- NOTE | 2016-12-09 07:00 | NUR ---
End of Shift Pt is a 31 year old male admitted on 12/03/2016 for Roxicodone, Xanax, ETOH, Cocaine and GHB dependence, placed on 5 day Ativan taper and 5 day Subutex taper. Roxicodone 450-600mg/daily, Xanax 2mg/daily, Beer or wine 4-8 servings daily for 2 weeks, Cocaine 2-3g/daily and GHB occasional use, unknown amount. NKA, regular diet and full code. PMH: Anxiety, HSV 2, skin cancer (right knee) and sports related injuries to the right shoulder, left elbow and left wrist. During shift, pt presented with anxiety, muscle/joint aches, skin noted with sweat, face flushed - scheduled taper medications administered, COWS 3, CIWA 4. Maalox 30ml PRN administered for heartburn effective as reported by pt. At 0051 upon awakening, pt reported increased anxiety d/t "worrying about everything that's on my mind". Pt requested if he could make a phone call at the hour to his friend. Pt was educated on phone call policy on the unit. Pt was pacing in room and noted with increased agitation. Seroquel 25mg PRN and Robaxin 750mg for reports of muscle aches administered. Upon reassessment, pt was noted to be resting in bed, eyes closed with unlabored respirations. Pt continues on Ativan and Subutex taper. Pt slept for 5 hours, intake of 946 ml PO and voids x2. Safety measures in place, call light within reach, side rails up x2, bed locked and in low position. Endorsed to day shift nurse.
[2016-12-09 08:00] VITALS: BP 121/73
--- NOTE | 2016-12-09 08:10 | NUR ---
START OF SHIFT: RECEIVED PT LAYING IN BED A/O X 4. HE PRESENTS WITH IRRITABLE MOOD AND CONGRUENT AFFECT. HE REPORTS MUSCLE ACHES,ANXIETY AND AGITATION AND STATES HE HAD A VERY RESTLESS NIGHT 'S SLEEP. HE STATES HE HAD RACING THOUGHTS AND WAS VERY ANXIOUS. COWS 4 CIWA 4 SUBUTEX /ATIVAN TAPER IN PROGRESS. PRN ROBAXIN AND PRN SEROQUEL GIVEN FOR MUSCLE ACHES AND AGITATION. ENCOURAGED INCREASED FLUIDS. WILL MONITOR EFFECTIVENESS OF PRN MEDICATION. WILL CONTINUE TO MONITOR AND MANAGE S/S OF W/D.
[2016-12-09] MEDS: THIAMINE HCL 100 MG TABLET PO SCH (08:22)
[2016-12-09] MEDS: BACLOFEN 20 MG TABLET PO SCH ×3 (08:23→21:32)
[2016-12-09] MEDS: CLONIDINE HCL 0.1 MG TABLET PO SCH ×3 (08:23→21:31)
[2016-12-09] MEDS: GABAPENTIN 300 MG CAPSULE PO SCH ×3 (08:23→21:32)
[2016-12-09] MEDS: FOLIC ACID 1 MG TABLET PO SCH (08:24)
[2016-12-09] MEDS: MULTIVITAMINS,THERAPEUTIC TABLET PO SCH (08:24)
--- NOTE | 2016-12-09 08:40 | NUR ---
PT STATES THE SEROQUEL AND ROBAXIN WERE EFFECTIVE. HE STATES HE FEELS A LITTLE BETTER BUT WANTS TO KNOW HIS PLAN WHEN HE LEAVES HERE. DIRECTED HIM TO SOLUTIONS SPECIALIST.
[2016-12-09] MEDS ORDERED: LORAZEPAM 1 MG TABLET PO SCH (09:00)
[2016-12-09] MEDS ORDERED: BUPRENORPHINE HCL 2 MG TAB.SUBL SL SCH (09:00)
[2016-12-09 12:00] VITALS: BP 132/91
[2016-12-09 16:00] VITALS: BP 143/89
--- NOTE | 2016-12-09 19:10 | NUR ---
END OF SHIFT: PT COMPLETED ATIVAN /SUBUTEX TAPER. HE C/O ANXIETY AND BODY ACHES ALSO RACING THOUGHTS AND A RESTLESS NIGHT'S SLEEP. PRN SEROQUEL AND ROBAXIN GIVEN AND EFFECTIVE.PT BECAME ANXIOUS ABOUT DISCHARGE PLAN AND DIRECTED HIM TO ASSISTANT TECHNICIAN. OFFERED SUPPORT AND ENCOURAGED GROUP ATTENDANCE TO IMPROVE COPING SKILLS AND PREVENT RELAPSE.HE IS COMPLIANT WITH MEDS AND TREATMENT PLAN.HE STATES HE ATTENDED A COUPLE OF ACTIVITIES AND GROUPS TODAY.[facility].
[2016-12-09 20:00] VITALS: BP 145/92
--- NOTE | 2016-12-09 20:00 | NUR ---
Start of Shift Pt is a 31 year old male admitted on 12/03/2016 for Roxicodone, Xanax, ETOH, Cocaine and GHB dependence, placed on 5 day Ativan taper and 5 day Subutex taper. Roxicodone 450-600mg/daily, Xanax 2mg/daily, Beer or wine 4-8 servings daily for 2 weeks, Cocaine 2-3g/daily and GHB occasional use, unknown amount. NKA, regular diet and full code. PMH: Anxiety, HSV 2, skin cancer (right knee) and sports related injuries to the right shoulder, left elbow and left wrist. Upon assessment, pt reports increased anxiety, reports muscle aches, reports mild heartburn, face flushed, respirations unlabored, denies SOB/chest pain, denies n/v/d. Safety measures in place, call light within reach, side rails up x2, bed locked and in low position. Will continue to monitor.
[2016-12-09] MEDS: LORAZEPAM 1 MG TABLET PO SCH (21:32)
[2016-12-09] MEDS: BUPRENORPHINE HCL 2 MG TAB.SUBL SL SCH (21:32)
[2016-12-09] MEDS: MAG HYDROX/AL HYDROX/SIMETH 30 ML LIQUID UDC PO PRN (21:41)
--- NOTE | 2016-12-09 21:41 | NUR ---
PRN Administration Pt reported heartburn, requested relief. Maalox 30ml PRN administered. Safety measures in place, Will continue to monitor
--- NOTE | 2016-12-09 22:45 | NUR ---
PRN Reassessment Upon reassessment of heartburn, pt reports relief of heartburn. All needs met at this time. Safety measures in place, Will continue to monitor.
--- NOTE | 2016-12-09 23:18 | NUR ---
PRN Administration Pt reports increased anxiety, racing thoughts, irritable, restlessness, increased agitation noted. Non-pharmacological methods ineffective. Seroquel 25mg PRN administered. Safety measures in place. Will continue to monitor.
[2016-12-10] VITALS: BP 115/77
--- NOTE | 2016-12-10 | NUR ---
Vital Signs BP 115/77, pulse 91, respirations 18, SpO2 98%, temp 97.8, no reports of pain 0/10. COWS/CIWA assessment deferred d/t pt sleeping, to assess while pt is awake as ordered. Safety measures in place, Will continue to monitor
--- NOTE | 2016-12-10 00:18 | NUR ---
PRN Reassessment Upon reassessment of Seroquel, pt is in bed with eyes closed , respirations unlabored, no acute s/s of distress noted. Safety measures in place. Will continue to monitor.
[2016-12-10 04:00] VITALS: BP 110/72
--- NOTE | 2016-12-10 04:00 | NUR ---
Vital Signs BP 110/72, pulse 89, respirations 16, SpO2 98%, temp 98, no reports of pain 0/10. COWS/CIWA assessment deferred d/t pt sleeping, to assess while pt is awake as ordered. Safety measures in place, Will continue to monitor
--- NOTE | 2016-12-10 07:00 | NUR ---
End of Shift Pt is a 31 year old male admitted on 12/03/2016 for Roxicodone, Xanax, ETOH, Cocaine and GHB dependence, placed on 5 day Ativan taper and 5 day Subutex taper. Roxicodone 450-600mg/daily, Xanax 2mg/daily, Beer or wine 4-8 servings daily for 2 weeks, Cocaine 2-3g/daily and GHB occasional use, unknown amount. NKA, regular diet and full code. PMH: Anxiety, HSV 2, skin cancer (right knee) and sports related injuries to the right shoulder, left elbow and left wrist. During shift, pt presented with anxiety, muscle aches, clammy skin scheduled taper medications administered, CIWA 4 and COWS 4. Maalox 30ml PRN administered for heartburn and Seroquel 25mg PRN administered for increased anxiety and agitation. Upon reassessment of Seroquel pt was noted to be in bed sleeping. Pt slept for 6 hours, intake of 1620 ml PO and voids x5. Safety measures in place, call light within reach, side rails up x2, bed locked and in low position. Endorsed to day shift nurse.
--- NOTE | 2016-12-10 07:25 | NUR ---
Start of shift note SBAR report rcv'd. Pt was admitted for benzo, ETOH and opiate dependence. Pt has a PMH of anxiety, HSVII, ad skin CA. Pt has NKA, is on a regular diet and a full code. Pt is on a subutex and ativan taper that have been extended d/t his withdrawal s/s. Pt is currently sleeping in his bed, pt has no complaints at this time. Bed is locked in a low position, call light within reach, side rails up x2. Will continue to monitor pt.
[2016-12-10 08:00] VITALS: BP 109/86
[2016-12-10] MEDS: LORAZEPAM 1 MG TABLET PO SCH (08:56)
[2016-12-10] MEDS: FOLIC ACID 1 MG TABLET PO SCH (08:56)
[2016-12-10] MEDS: GABAPENTIN 300 MG CAPSULE PO SCH ×3 (08:56→21:39)
[2016-12-10] MEDS: BUPRENORPHINE HCL 2 MG TAB.SUBL SL SCH (08:56)
[2016-12-10] MEDS: MULTIVITAMINS,THERAPEUTIC TABLET PO SCH (08:56)
[2016-12-10] MEDS: BACLOFEN 20 MG TABLET PO SCH ×3 (08:56→21:39)
[2016-12-10] MEDS: THIAMINE HCL 100 MG TABLET PO SCH (08:56)
[2016-12-10] MEDS: CLONIDINE HCL 0.1 MG TABLET PO SCH ×3 (08:56→21:39)
[2016-12-10 13:49] VITALS: BP 109/66
[2016-12-10 14:54] LABS: *AMPHETAMINE, URINE NEGATIVE (NEGATIVE); *BARBITURATE, URINE NEGATIVE (NEGATIVE); *CANNABINOID, URINE NEGATIVE (NEGATIVE); *COCCAINE, URINE NEGATIVE (NEGATIVE); *OPIATE, URINE NEGATIVE (NEGATIVE); *PHENCYCLIDINE SCREEN,URINE NEGATIVE (NEGATIVE)
[2016-12-10 17:45] VITALS: BP 130/80
[2016-12-10] MEDS ORDERED: HYDR-3895 PO (17:48)
[2016-12-10] MEDS ORDERED: CLON0.1T14 PO (17:48)
[2016-12-10] MEDS ORDERED: Ibuprofen PO (17:48)
[2016-12-10] MEDS ORDERED: Gabapentin PO (17:48)
[2016-12-10] MEDS ORDERED: DICY20TA28 PO (17:48)
[2016-12-10] MEDS ORDERED: TRAZ-144 PO (17:48)
[2016-12-10] MEDS ORDERED: Baclofen PO (17:48)
--- NOTE | 2016-12-10 19:15 | NUR ---
START OF SHIFT Received 31 year old male patient admitted on 12/03/16 for Xanax, ETOH, Roxicodone, Cocaine and GHB dependency. Pt is full code with NKCarmen. He reports a PMHx of anxiety, HSV 2, skin cancer of the right knee, and sports related injuries to the right shoulder, left elbow and left wrist. He reports using Xanax 2 mg daily for 4 weeks, last dose 2 mg on 12/03/16. ETOH (beer or wine) 4-8 glasses daily for 2 weeks. Last dose 2 drinks on 12/03/16, Roxicodone 450 mg-600 mg daily for 4 weeks. Last dose 90 mg on 12/03/16. Cocaine 2-3 gram daily for 4 weeks. Last dose 2 grams and GHB occasionally of unknown amount. Pt was placed on 5 day Ativan and 5 day Subutex taper and tolerated well. Per endorsement, pt is scheduled to be DC tomorrow 12/11/16. Pt did not receive or request PRN medications. Pt is alert and oriented x4, breathing is even and unlabored, safety measures in place. Will continue to monitor.
--- NOTE | 2016-12-10 19:19 | NUR ---
END OF SHIFT Patient alert and oriented x4, vital signs were stable during shift, patient compliant with therapeutic plan of care. Patient with admitting Dx: opiate/bzo/etoh dependence. completed 5 day Subutex and 5 day Ativan taper as ordered and is scheduled to be discharged tomorrow, urine drug screen completed. 1700 assessment patient presented with heart rate of 83 and mild anxiety with cow score of: 2 and ciwa score of: 1. Was administered no PRNs during shift. Patient encouraged to attend group therapies/sessions to learn new coping skills to prevent relapse, noted attending and participating, denies SI/HI. Patient encouraged adequate PO fluid intake as tolerated. Safety measures in place. will continue to monitor. safety measures in place. Patient endorsed to assembler 1st shift nurse, all pertinent information discussed.
[2016-12-10 20:00] VITALS: BP 122/80
[2016-12-10] MEDS: QUETIAPINE FUMARATE 25 MG TABLET PO PRN (21:39)
--- NOTE | 2016-12-10 21:39 | NUR ---
PRN SEROQUEL Pt noted to be agitated/anxious. PRN Seroquel administered as ordered. Breathing even and unlabored, safety measures in place. Will continue to monitor effectiveness
--- NOTE | 2016-12-10 22:39 | NUR ---
PRN SEROQUEL REASSESSMENT PRN medication effective. Pt lying in bed with eyes closed noted to be asleep. Respirations 16. Breathing is even and unlabored, safety measures in place. Will continue to monitor.
[2016-12-11] VITALS: BP 119/78
--- NOTE | 2016-12-11 | NUR ---
COWS/CIWA DEFERRED COWS/CIWA deferred d/t order is Q4H while awake. Pt lying in bed with eyes closed noted to be asleep. Respirations 16, breathing even and unlabored. Safety measures in place. Will continue to monitor
[2016-12-11 04:00] VITALS: BP 95/45
--- NOTE | 2016-12-11 06:05 | NUR ---
DISCHARGE NOTE Pt was admitted for ETOH, Benzo, Opiate, Cocaine and GHB dependence. Pt has a COWS:1, CIWA:1. Pt VS are WNL. Pt LBM was 12/10/16. Pt denies any SI/HI. Pt states that he feels ready for discharge. Pt verbalized his understanding of the discharge instructions. Pt discharge instructions, prescriptions, and all belongings returned to pt. ID band removed. 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
== END 2016-12-11 06:00 | disposition other institution (70) | DRG 895 ==
LOC: SRC 20:11
PROVIDERS: ADMIT Internal Medicine; ATTEND Internal Medicine
PROC: HZ2ZZZZ Detoxification Services for Substance Abuse Treatment (ICD-10-PCS; principal; 2016-12-03)
PROC: HZ31ZZZ Individual Counseling for Substance Abuse Treatment, Behavioral (ICD-10-PCS; 2016-12-05)
PROC: HZ41ZZZ Group Counseling for Substance Abuse Treatment, Behavioral (ICD-10-PCS; 2016-12-08)
DX: F10.230 Alcohol dependence with withdrawal, uncomplicated (principal); E87.3 Alkalosis; N17.9 Acute kidney failure, unspecified; F14.20 Cocaine dependence, uncomplicated; F13.230 Sedative, hypnotic or anxiolytic dependence with withdrawal, uncomplicated; Y90.9 Presence of alcohol in blood, level not specified; F11.23 Opioid dependence with withdrawal; Z81.1 Family history of alcohol abuse and dependence; Z80.9 Family history of malignant neoplasm, unspecified; F41.0 Panic disorder [episodic paroxysmal anxiety]; F39 Unspecified mood [affective] disorder; F17.210 Nicotine dependence, cigarettes, uncomplicated; E86.1 Hypovolemia; E86.0 Dehydration; E07.81 Sick-euthyroid syndrome
CPT/HCPCS: 36415; 70030-TC; 80307; 80346; 80353; 82533; 83690; 83735; 84100; 84403; 84443; 85025; 86580; 86592; 86705; 86803; 87340; 87806; 93005; A4663; G6040-TC; J7030; Q0162